=== PATIENT | male | born 1970 | race Caucasian/White ===

== ENCOUNTER 2020-06-09 21:37 | Emergency (ER) | payer BC ==
--- NOTE | 2020-06-09 21:47 | EDM.PDOC ---
ED HPI GENERAL MEDICAL PROBLEM - General Chief Complaint: General Stated Complaint: laceration to R ring finger Time Seen by Provider: 06/09/20 21:46 Source of Information: Reports: Patient History Limitations: Reports: No Limitations - History of Present Illness INITIAL COMMENTS - FREE TEXT/NARRATIVE: Tonight while working on a dump trailer, finger caught between 2 pieces of metal causing laceration. Able to move finger with no difficulty other than some pain, sensation is reduced slightly to the distal flanks. No other injury. Is in need of tetanus update. Onset: Today - Related Data Allergies Allergy/AdvReac Type Severity Reaction Status Date / Time bacitracin [From Cortisporin] Allergy Unknown UNKNOWN Verified 06/09/20 21:54 polymyxin B sulfate Allergy Unknown UNKNOWN Verified 06/09/20 21:54 [From Cortisporin] bacitracin zinc Allergy UNKNOWN Verified 06/09/20 21:54 [From Cortisporin] hydrocortisone Allergy UNKNOWN Verified 06/09/20 21:54 [From Cortisporin] neomycin [From Cortisporin] Allergy UNKNOWN Verified 06/09/20 21:54 neomycin sulfate Allergy UNKNOWN Verified 06/09/20 21:54 [From Cortisporin] polymyxin B Allergy UNKNOWN Verified 06/09/20 21:54 [From Cortisporin] seasonal allergies Allergy Cannot Uncoded 06/09/20 21:54 Remember Home Meds: Home Meds ALPRAZolam [Xanax] 0.5 mg PO Q12H PRN 02/24/15 [History] Benazepril [Lotensin] 20 mg PO DAILY 02/24/15 [History] Escitalopram [Lexapro] 10 mg PO DAILY 02/24/15 [History] Fluticasone Propionate [Flonase] 2 spray NASBOTH DAILY PRN 02/24/15 [History] Pantoprazole [ProTONIX] 40 mg PO ACBREAKFAST 02/24/15 [History] Simvastatin [Zocor] 20 mg PO DAILY 02/24/15 [History] Ciprofloxacin HCl [Cipro] 500 mg PO BID #20 tablet 03/22/15 [Rx] Past Medical History Other Musculoskeletal History: chronic fatigue syndrome Social & Family History - Family History Family Medical History: Noncontributory - Tobacco Use Smoking Status *Q: Never Smoker - Living Situation & Occupation Living situation: Reports: Occupation: Employed ED ROS GENERAL - Review of Systems Review Of Systems: Comprehensive ROS is negative, except as noted in HPI. ED EXAM, GENERAL - Physical Exam Exam: See Below Free Text/Narrative:: HEENT negative discharge or deformity. There is no respiratory distress with clear breath sounds. Radial pulses present bilateral. Focused to the right hand showing a laceration to centimeters in a horseshoe fashion to the distal phalange of the right fourth digit. Capillary refill is somewhat delayed but is within 2 seconds to the nailbed. There is no tenderness to compression of the bone structure lateral to medial nor over the tip of the nail. Flexion extension is intact. ED GENERAL MEDICAL PROCEDURES - Laceration/Wound Repair Right Distal Digit - 4th (Ring) Lac/wound length in cm: 2 Appearance: Irregular Distal NVT: Neuro & Vascular Intact, No Tendon Injury Anesthetic Type: Local Local Anesthesia - Lidocaine (Xylocaine): 2% Plain Local Anesthetic Volume: 2cc Skin Prep: Providone-Iodine (Betadine) Exploration/Debridement/Repair: Wound Explored, In a Bloodless Field, Explored to Base Closed with: Sutures Suture Size: 4-0 # of Sutures: 6 Suture Type: Nylon, Interrupted Course - Vital Signs Last Recorded V/S: Last Vital Signs Temp 36.3 C 06/09/20 22:12 Pulse 87 06/09/20 22:12 Resp 20 06/09/20 22:12 BP 126/78 06/09/20 22:12 Pulse Ox 97 06/09/20 22:12 - Orders/Labs/Meds Orders: Active Orders 24 hr Category Date Time Status Vaccines to be Administered [RC] PER UNIT ROUTINE Care 06/09/20 21:57 Active Meds: Medications Discontinued Medications Generic Name Dose Route Start Last Admin Trade Name Freq PRN Reason Stop Dose Admin Diphtheria/Tetanus/Acell Pertussis 0.5 ml 06/09/20 21:56 Adacel IM 06/09/20 21:57 .ONCE ONE Lidocaine 5 ml 06/09/20 21:57 06/09/20 22:03 Xylocaine-Mpf 2% INJECT 06/09/20 21:58 2 ml ONETIME ONE Administration Neomycin/Polymyxin/Bacitracin 1 each 06/09/20 22:24 Triple Antibiotic Oint TOP 06/09/20 22:25 ONETIME ONE Departure - Departure Time of Disposition: 22:25 Disposition: Home, Self-Care 01 Condition: Good Clinical Impression: Laceration, Suture of skin wound - Discharge Information *PRESCRIPTION DRUG MONITORING PROGRAM REVIEWED*: Not Applicable *COPY OF PRESCRIPTION DRUG MONITORING REPORT IN PATIENT TIFFANY: Not Applicable Referrals: Aziza Washington PA-C [Primary Care Provider] - Forms: ED Department Discharge Additional Instructions: Keep dressing in place until tomorrow, roughly at noon. You may remove it clean your finger and replace with a good Band-Aid cover. Stitches need to be removed in 10 days at the clinic of your choice. No dishwashing, or soaking of the hand until sutures are removed. Your tetanus status was updated tonight if you should be good for 8 years. Call your clinic if any questions or concerns arise Sepsis Event Note (ED) - Focused Exam Vital Signs: Vital Signs Temp Pulse Resp BP Pulse Ox 06/09/20 22:12 36.3 C 87 20 126/78 97 - Problem List & Annotations (1) Laceration SNOMED Code(s): 492713796 Code(s): ZJD2512 - Status: Acute Current Visit: Yes (2) Suture of skin wound SNOMED Code(s): 605751774, 178502771 Code(s): T14.8XXA - OTHER INJURY OF UNSPECIFIED BODY REGION, INITIAL ENCOUNTER Status: Acute Priority: Medium Current Visit: Yes - Problem List Review Problem List Initiated/Reviewed/Updated: Yes - My Orders Last 24 Hours: My Active Orders 06/09/20 21:57 Vaccines to be Administered [RC] PER UNIT ROUTINE - Assessment/Plan Last 24 Hours: My Active Orders 06/09/20 21:57 Vaccines to be Administered [RC] PER UNIT ROUTINE Plan: Keep dressing in place until tomorrow, roughly at noon. You may remove it clean your finger and replace with a good Band-Aid cover. Stitches need to be removed in 10 days at the clinic of your choice. No dishwashing, or soaking of the hand until sutures are removed. Your tetanus status was updated tonight if you should be good for 8 years. Call your clinic if any questions or concerns arise.
[2020-06-09] MEDS ORDERED: Diphtheria,Pertussis(Acell),Tetanus Vaccine 0.5 ML SDV IM ONE (21:56)
[2020-06-09] MEDS ORDERED: Lidocaine 2% 5 ML SDV INJECT ONE (21:57)
[2020-06-09 22:15] VITALS: BP 126/78; PULSE 87
[2020-06-09] MEDS ORDERED: Bacitracin/Neomycin/Polymyxin B Oint 0.9 GM U/D Packet TOP ONE (22:24)
== END 2020-06-09 22:40 | disposition home or self-care (01) ==
LOC: KA.ED 21:37
DX: S61.214A Laceration without foreign body of right ring finger without damage to nail, initial encounter (principal); Z88.1 Allergy status to other antibiotic agents; Z23 Encounter for immunization; Z91.048 Other nonmedicinal substance allergy status; W23.0XXA Caught, crushed, jammed, or pinched between moving objects, initial encounter
CPT/HCPCS: 12001; 90471; 90715; 99282-25; 99283; J2001

== ENCOUNTER 2020-12-19 08:56 | Day surgery (SDC) | payer OTHER ==
[2020-12-19] MEDS ORDERED: Sodium Chloride 0.9% 1,000 ML IV SCH (09:00)
[2020-12-19] MEDS ORDERED: Sodium Chloride 0.9% 10 ML Syringe FLUSH PRN (09:00)
--- NOTE | 2020-12-19 09:48 | PCM.PN ---
- General Info Date of Service: 12/19/20 - Review of Systems Systems Review Comment:: 50-year-old male referred for EGD and colonoscopy. He has noticed upper abdominal and back pain and food intolerance. He also comes for screening colonoscopy. He is medically stable to proceed today. His recent history and physical is reviewed and no significant changes are noted. I have discussed the proposed EGD and colonoscopy with the patient. Risks such as but not limited to bleeding and GI injury reviewed. He agrees to proceed. - Patient Data Vitals - Most Recent: Last Vital Signs Temp 96.9 F 12/19/20 09:09 Pulse 84 12/19/20 09:09 Resp 18 12/19/20 09:09 BP 135/86 12/19/20 09:09 Pulse Ox 94 L 12/19/20 09:09 Weight - Most Recent: 156.489 kg Med Orders - Current: Current Medications Sodium Chloride (Normal Saline) 1,000 mls @ 50 mls/hr IV ASDIRECTED [facility] Last Admin: 12/19/20 09:19 Dose: 50 mls/hr Documented by: Sodium Chloride (Sodium Chloride 0.9% 10 Ml Syringe) 10 ml FLUSH Q8HR PRN PRN Reason: keep vein open Last Admin: 12/19/20 09:18 Dose: 10 ml Documented by: Sepsis Event Note - Focused Exam Vital Signs: Vital Signs Temp Pulse Resp BP Pulse Ox 12/19/20 09:09 96.9 F 84 18 135/86 94 L - Problem List Review Problem List Initiated/Reviewed/Updated: Yes - My Orders Last 24 Hours: My Active Orders 12/18/20 13:49 Resuscitation Status Routine 12/19/20 Breakfast Nothing Per Oral Diet [DIET] 12/19/20 09:00 Blood Glucose Check, Bedside [RC] UPON Peripheral IV Care [RC] . DIRECTED Sodium Chloride 0.9% [Normal Saline] 1,000 ml IV ASDIRECTED Sodium Chloride 0.9% [Saline Flush] 10 ml FLUSH Q8HR PRN Peripheral IV Insertion Adult [OM.PC] Routine 12/19/20 09:30 Patient to Empty Bladder [RC] ASDIRECTED 12/19/20 10:00 Verify Patient Consent Obtain [RC] ASDIRECTED - Assessment Assessment:: Abdominal and back pain Colon cancer screening - Plan Plan:: EGD and colonoscopy
[2020-12-19] MEDS ORDERED: Midazolam 1 MG/ML 2 ML SDV ONE (09:55)
[2020-12-19] MEDS ORDERED: Propofol 200 MG/20 ML SDV ONE (09:55)
[2020-12-19] MEDS ORDERED: Lidocaine 2% 5 ML SDV ONE (09:55)
[2020-12-19] MEDS ORDERED: Glycopyrrolate 0.2 MG/ML SDV ONE (09:55)
--- NOTE | 2020-12-19 10:38 | PCM.OPNOTE ---
- General Post-Op/Procedure Note Date of Surgery/Procedure: 12/19/20 Operative Procedure(s): EGD with Biopsy. Colonoscopy Findings: Mild reflux esophagitis Otherwise normal upper endoscopy Normal colon Pre Op Diagnosis: Abdominal pain. Colon cancer screening Post-Op Diagnosis: Reflux esophagitis. Normal Colon Anesthesia Technique: MAC Primary Surgeon: Oneil Martinez Pathology: Biopsies of gastric antrum and GE junction EBL in mLs: 3 Complications: None Condition: Good
[2020-12-19 11:34] VITALS: BP 121/73; PULSE 91
--- NOTE | 2020-12-19 11:39 | OR ---
DATE OF SURGERY: 12/19/2020 SURGEON: Oneil Martinez MD PREOPERATIVE DIAGNOSIS: Abdominal pain, colon cancer screening. POSTOPERATIVE DIAGNOSIS: Reflux esophagitis and normal colon. OPERATION PERFORMED: Esophagogastroduodenoscopy with biopsy and colonoscopy. INDICATIONS FOR SURGERY: This 50-year-old male has been having symptoms of upper abdominal pain and some food intolerance. Diagnostic upper endoscopy is indicated. The patient has also never had a prior colon examination and is due for colon cancer screening. FINDINGS: On upper endoscopy, the patient has some mild irregularity of the GE junction consistent with mild reflux esophagitis. The remainder of the esophagus, stomach, and duodenum, however, appeared normal. The patient's colon appears normal. DESCRIPTION OF PROCEDURE: The patient was taken to the operating room. He was given intravenous sedation and his throat was topically anesthetized. With him in the left lateral decubitus position, the Olympus gastroscope was advanced through the mouth guard into the oral cavity. Under direct visualization, the scope was advanced down through the oropharynx into the esophagus and through the esophagus, stomach, and into the duodenum where examination to the third portion is performed. After examining the duodenum, the scope was withdrawn back into the stomach where full examination including retroflexed examination of the fundus was carried out. Random biopsies of the antrum were taken to rule out H pylori. The GE junction is carefully examined and biopsies of the GE junction are taken because of the mild degree of inflammation seen here. The esophagus was then re-examined as the scope was removed. Attention was turned to colonoscopy. Digital rectal exam was performed showing no rectal masses. The Olympus colonoscope was inserted into the rectum. Retroflexed examination of the rectal canal was performed. The scope was then carefully advanced under direct visualization through the entire length of the colon until the cecum is reached. Cecal acquisition is confirmed by noting the normal internal cecal anatomy including the appendiceal orifice and the ileocecal valve. After the cecum was examined, the scope was slowly withdrawn sequentially re-examining the colonic segments until the entire colon and rectum had been fully examined. The scope was removed and the patient was taken from the operating room in satisfactory condition. ESTIMATED BLOOD LOSS: 3 mL. COMPLICATIONS: None. PROGNOSIS: Good. /[id number]/MODL
== END 2020-12-19 12:00 | disposition home or self-care (01) ==
LOC: KA.SDS 08:56
PROVIDERS: ATTEND Surgery
DX: Z12.11 Encounter for screening for malignant neoplasm of colon (principal); K31.89 Other diseases of stomach and duodenum; I78.1 Nevus, non-neoplastic; E78.00 Pure hypercholesterolemia, unspecified; I12.9 Hypertensive chronic kidney disease with stage 1 through stage 4 chronic kidney disease, or unspecified chronic kidney disease; E11.22 Type 2 diabetes mellitus with diabetic chronic kidney disease; N18.30 Chronic kidney disease, stage 3 unspecified; E55.9 Vitamin D deficiency, unspecified; F41.9 Anxiety disorder, unspecified; F32.9 Major depressive disorder, single episode, unspecified; K21.9 Gastro-esophageal reflux disease without esophagitis; Z88.8 Allergy status to other drugs, medicaments and biological substances; Z90.49 Acquired absence of other specified parts of digestive tract; Z98.890 Other specified postprocedural states; Z68.41 Body mass index [BMI] 40.0-44.9, adult
CPT/HCPCS: 00813; 82962; J2250; J2704; J3490; J7030